=== PATIENT | female | born 1970 ===

== ENCOUNTER 2016-08-22 11:50 | Day surgery (SDC) | payer OTHER ==
[2016-08-22 12:01] VITALS: BMI 31.5
[2016-08-22 12:09] VITALS: RESP 18
[2016-08-22] MEDS ORDERED: methylPREDNISolone Depo 80 mg/ml Inj ONE (12:44)
[2016-08-22] MEDS ORDERED: Lidocaine 1% Inj (20ml) ONE (12:44)
[2016-08-22] MEDS ORDERED: Bupivacaine 0.5% Inj(30mL) ONE (12:44)
[2016-08-22] MEDS ORDERED: Propofol 10 mg/ml Inj (20 ML) ONE (12:44)
[2016-08-22] MEDS ORDERED: Midazolam 2 MG/2 ML VIAL ONE (12:45)
[2016-08-22] MEDS ORDERED: Bupivacaine 0.5% 50 ML IJ ONE (12:53)
[2016-08-22] MEDS ORDERED: Lidocaine 1% 20 MG/2 ML PF AMP EP ONE (12:53)
[2016-08-22] MEDS ORDERED: methylPREDNISolone Depo 80 mg/ml Inj IM ONE (12:53)
[2016-08-22] MEDS ORDERED: Lactated Ringer's 1,000 ML IV ONE (13:06)
[2016-08-22 13:46] VITALS: TEMP 97.6
--- NOTE | 2016-08-22 13:58 | OP ---
PROCEDURE DATE: 08/22/2016 PREOPERATIVE DIAGNOSIS: Lumbar facet arthropathy. POSTOPERATIVE DIAGNOSIS: Lumbar facet arthropathy. PROCEDURE: Right L2, L3, and L4 medial nerve block. ANESTHESIOLOGIST: Dr. Brunson. SURGEON: Dr. Zhang. ANESTHESIA TYPE: Monitored anesthesia care. COMPLICATIONS: None. SPECIMEN: None. PROCEDURE: After re-discussion of the procedure with the patient including its risks, benefits and a lternatives, outcome data, possibility of no effect or increased pain, the patient consented to the p rocedure. She denies any recent infections, bleeding tendencies, or being on anticoagulants. [place] on was then made to proceed to the OR. The patient was placed on the fluoroscopy table in a prone position with 2 pillows underneath her abd omen. The back was prepped and draped in a usual sterile fashion and sterile technique was adhered t o during the entire procedure. The L2, L3 and L4 medial branch nerves are located at the intersectio n of the superior articular process and the transverse process of the L2, L3 and L4 pedicles. The sk in overlying the 3 above target areas was then infiltrated with 1% lidocaine using a 25 gauge needle. Subsequently, a 22 gauge 3-1/2 inch spinal needle was then incrementally advanced under fluoroscopi c guidance until tip of needle made bony contact with all 3 target areas. After satisfactory positio sandra of all 3 needles, approximately 3 mL of a 0.5% Marcaine and Depo-Medrol mixture was injected int o each needle. The needle was then removed and the patient's back was cleaned and dried and Band-Aid s were applied. The patient was then transferred to recovery area in good condition without any signs of SNUFF GRINDER toxicity or any neurological deficits. She will have a followup in office in approximately 2-4 weeks. En-Anthony Zhang MD cc: [phone] TT: 08/22/2016 13:58:05 radha
[2016-08-22 14:08] VITALS: BP 150/83; PULSE 70; O2SAT 100
--- NOTE | 2016-08-22 14:59 | RAD ---
PROCEDURE: Lumbar Epidural Injection HISTORY: ' TECHNIQUE: Fluoroscopic guidance was provided for epidural injection for pain management purposes. FINDINGS: IMPRESSION: Fluoroscopic guidance provided for epidural injection. Please refer procedure.
== END 2016-08-22 14:27 | disposition home or self-care (01) ==
LOC: H.OPSURG 11:50
PROVIDERS: ATTEND Anesthesiology
DX: M54.9 Dorsalgia, unspecified (principal); J45.909 Unspecified asthma, uncomplicated; I10 Essential (primary) hypertension

== ENCOUNTER 2016-10-24 09:42 | Day surgery (SDC) | payer OTHER ==
[2016-10-24 10:37] VITALS: BMI 30.9
[2016-10-24] MEDS ORDERED: Propofol 10 mg/ml Inj (20 ML) ONE (11:35)
[2016-10-24] MEDS ORDERED: methylPREDNISolone Depo 80 mg/ml Inj ONE (11:43)
[2016-10-24] MEDS ORDERED: Bupivacaine HCl 0.5% PF (10 ml) Inj ONE (11:43)
[2016-10-24] MEDS ORDERED: Lidocaine 1% Inj (20ml) ONE (11:43)
[2016-10-24] MEDS ORDERED: Lactated Ringer's 1,000 ML IV ONE (11:50)
[2016-10-24] MEDS ORDERED: Lidocaine 1% Inj (20ml) IJ ONE (12:00)
[2016-10-24] MEDS ORDERED: Bupivacaine HCl 0.5% PF (10 ml) Inj IJ ONE (12:00)
[2016-10-24] MEDS ORDERED: methylPREDNISolone Depo 80 mg/ml Inj IM ONE (12:00)
[2016-10-24 12:23] VITALS: O2SAT 100
[2016-10-24 13:10] VITALS: TEMP 97.7
[2016-10-24 13:21] VITALS: BP 161/94; PULSE 75; RESP 18
--- NOTE | 2016-10-24 16:02 | RAD ---
PROCEDURE: Fluoroscopy up to 1 hr. HISTORY: PAIN MANAGEMENT COMPARISON: None TECHNIQUE: Standard FINDINGS: Total fluoroscopic time (continuous mode) utilized during the procedure: 21.3 seconds. Submitted images from the current procedure: 1.0 IMPRESSION: Less than 1 hr fluoroscopic time utilized during performance of the procedure.
--- NOTE | 2016-10-26 08:05 | PCM.OP ---
Operative Report - Operative Report Date of Surgery/Procedure: 10/24/16 Time of Surgery/Procedure: 13:00 Surgeon: Vicente Anesthesia/Sedation: Monitored Anesthesia Care Pre-Operative Diagnosis: Lumbar facet arthropathy Post-Operative Diagnosis: Same Indication for Surgery: Intractable Pain Operative Findings: After discussion of the procedure with the patient including its risks and deficits alternative TO THE POSSIBILITY OF INCREASED PAIN PATIENT CONSENTED TO THE PROCEDURE. SHE DENIES ANY RECENT INFECTIONS BLEEDING TENDENCIES OR BEING ON ANTICOAGULANTS. Decision was then made TO PROCEED TO THE OR. PATIENT WAS PLACED ON A FLUOROSCOPY TABLE IN A PRONE POSITION WITH 2 PILLOWS UNDERNEATH HER ABDOMEN. THE BACK WAS PREPPED AND DRAPED IN THE USUAL STERILE FASHION AND STERILE TECHNIQUE WAS ADHERED TO TRIGGER ENTIRE PROCEDURE. THE L2-L3 AND L4 VERTEBRAL LEVELS WERE FIRST IDENTIFIED IN THE ANTEROPOSTERIOR VIEW. THEN OBLIQUE ANGLE TOWARDS THE RIGHT AT APPROXIMATELY 50 WAS USED TO MAXIMIZE VISUALIZATION OF THE RIGHT L2-L3 AND L4 PEDICLES. THE MEDIAL BRANCH NERVES ARE LOCATED AT THE INTERSECTION OF THE SUPERIOR ARTICULAR PROCESS AND TRANSVERSE PROCESS OF THE UPPER PEDICLES. THE SKIN OVERLYING THE 3 ABOVE TARGET AREAS WAS INFILTRATED WITH 1% LIDOCAINE USING A 25-GAUGE NEEDLE. SUBSEQUENTLY A 22-GAUGE 3-1/2 INCH SPINAL NEEDLE WAS INCREMENTALLY ADVANCED UNDER FLUOROSCOPIC GUIDANCE UNTIL TIP OF THE NEEDLE. BONY CONTACT WITH ALL 3 TARGET AREAS. AFTER SATISFACTORY POSITIONING OF ANY LOSS APPROXIMATELY 2 ML OF A 0.5% MARCAINE AND DEPO-MEDROL MIXTURE WAS INJECTED. THE NEEDLE WAS THEN REMOVED AND THE PATIENT'S BACK WAS CLEAN AND DRY BANDAGE WERE APPLIED. PATIENT WAS TRANSFERRED TO RECOVERY AREA IN GOOD CONDITIONS WITHOUT ANY SIGNS OF SENIOR CREDIT ANALYST TOXICITY OR ANY NEUROLOGICAL DEFICIT. SHE'LL HAVE A FOLLOW-UP IN OFFICE IN APPROXIMATELY 2-4 WEEKS. END OF DICTATION Procedure/Operation Description: Right L2, L3, L4 medial branch nerve blocks Estimated Blood Loss: None. Complications: None. Discharge & Condition: Stable to home.
== END 2016-10-24 13:45 | disposition home or self-care (01) ==
LOC: H.OPSURG 09:42
PROVIDERS: ATTEND Anesthesiology
DX: M54.06 Panniculitis affecting regions of neck and back, lumbar region (principal); J45.909 Unspecified asthma, uncomplicated; I10 Essential (primary) hypertension

== ENCOUNTER 2017-01-30 10:55 | Day surgery (SDC) | payer OTHER ==
[2017-01-30 11:12] VITALS: BMI 30.1
[2017-01-30] MEDS ORDERED: Lactated Ringer's 1,000 ML IV ONE (12:25)
[2017-01-30] MEDS ORDERED: Midazolam 2 MG/2 ML VIAL ONE (12:34)
[2017-01-30] MEDS ORDERED: Lidocaine 1% Inj (20ml) ONE (12:35)
[2017-01-30] MEDS ORDERED: Bupivacaine HCl 0.5% PF (10 ml) Inj ONE (12:35)
[2017-01-30] MEDS ORDERED: methylPREDNISolone Depo 80 mg/ml Inj IM ONE (12:42)
[2017-01-30] MEDS ORDERED: Lidocaine 1% Inj (20ml) IJ ONE (12:42)
[2017-01-30] MEDS ORDERED: Bupivacaine HCl 0.5% PF (10 ml) Inj IJ ONE (12:42)
[2017-01-30] MEDS ORDERED: Lactated Ringer's 500 ML IV ONE ×2 (13:00→14:00)
[2017-01-30] MEDS ORDERED: Lactated Ringer's 1,000 ML IV SCH (13:15)
[2017-01-30 13:18] VITALS: O2SAT 100
[2017-01-30 14:21] VITALS: BP 133/68; PULSE 76; RESP 18; TEMP 97.4
--- NOTE | 2017-01-30 17:13 | RAD ---
PROCEDURE: Fluoroscopy up to 1 hr. HISTORY: PAIN MANAGEMENT COMPARISON: None TECHNIQUE: Standard protocol for this study/examination. FINDINGS: Total fluoroscopic time (continuous mode) utilized during the procedure: 31.3 seconds. Submitted images from the current procedure: 1.0 IMPRESSION: Less than 1 hr fluoroscopic time utilized during performance of the procedure.
--- NOTE | 2017-01-31 01:34 | OP ---
PROCEDURE DATE: 01/30/2017 PREOPERATIVE DIAGNOSIS: Lumbar facet syndrome. POSTOPERATIVE DIAGNOSIS: Lumbar facet syndrome. PROCEDURE: Right L1, L2, and L3 medial branch nerve radiofrequency. SURGEON: Karena Zhang MD. TYPE OF ANESTHESIA: Monitored anesthesia care. ANESTHESIA ADMINISTERED BY: Anurag Greene MD. COMPLICATIONS: None. SPECIMEN: None. DESCRIPTION OF PROCEDURE: As follows, after we had discussion of the procedure with the patient including its risks, benefits, alternative, outcome data, possibility of no effect or increased pain, patient consented to the procedure. She denies any recent infections, bleeding tendencies or being on anticoagulants. A decision was then made to proceed to the OR. Patient was placed on a fluoroscopy table in a prone position with 2 pillows underneath her abdomen. The back was prepped and draped in the usual sterile fashion and sterile technique was adhered to during the entire procedure. Patient was then grounded. The L1, L2 and L3 vertebral levels were first identified in the anterior and posterior view. Angulation towards the right at approximately 15 degrees was used to maximize the visualization of the right L1, L2 and L3 pedicles. The skin overlying the 3 above target areas was infiltrated with 1% lidocaine using a 25-gauge needle. Subsequently, a 22-gauge 3-1/2 inch spinal needle was incrementally advanced under fluoroscopic guidance until tip of the needle made bony contact with all 3 target areas. After satisfactory positioning of all 3 needles, sensory and motor testing was carried out to satisfactory results. Patient reports corresponding pain in the right lower back without any muscle twitching involving the right leg. Then, each nerve was anesthetized with 1% lidocaine. Radiofrequency was then carried out at 80 degree Celsius for approximately 1-1/2 minutes. At the end of the procedure, the nerve was anesthetized with a combination of 0.5% Marcaine and Depo-Medrol. At the end of the case, patient's back was cleaned and dried and bandages were applied. The patient was then transferred to recovery area in good conditions without any signs of ROUSTABOUT PUSHER toxicity or any neurological deficits. She will have a followup in our office in approximately 2 to 4 weeks. Karena Zhang MD
== END 2017-01-30 14:40 | disposition home or self-care (01) ==
LOC: H.OPSURG 10:55
PROVIDERS: ATTEND Anesthesiology
DX: M54.06 Panniculitis affecting regions of neck and back, lumbar region (principal); I10 Essential (primary) hypertension; J45.909 Unspecified asthma, uncomplicated
CPT/HCPCS: 64635; 64636; J1040; J2250; J3010; J7120

== ENCOUNTER 2017-08-02 07:27 | Day surgery (SDC) | payer OTHER ==
[2017-08-02] MEDS ORDERED: Iohexol 300 10 ML ONE (08:52)
[2017-08-02] MEDS ORDERED: MethylPREDNISolone Depo 40 mg/ml Inj ONE (08:52)
[2017-08-02] MEDS ORDERED: Lidocaine Hydrochloride 1% 10 ML ONE (08:53)
[2017-08-02] MEDS ORDERED: Bupivacaine HCl 0.5% PF (30 ml) Inj ONE (08:53)
[2017-08-02] MEDS ORDERED: Bupivacaine HCl 0.25% PF (30 ml) Inj ONE (08:53)
[2017-08-02] MEDS ORDERED: methylPREDNISolone Depo 80 mg/ml Inj ONE (09:10)
[2017-08-02] MEDS ORDERED: Propofol 10 mg/ml Inj (20 ML) ONE (09:11)
[2017-08-02] MEDS ORDERED: Midazolam 2 MG/2 ML VIAL ONE (09:11)
[2017-08-02] MEDS ORDERED: Lactated Ringer's 1,000 ML IV ONE (09:12)
[2017-08-02] MEDS ORDERED: Lidocaine 2% MPF (5 ml) Inj ONE (09:13)
[2017-08-02] MEDS ORDERED: methylPREDNISolone Depo 80 mg/ml Inj IM ONE (09:15)
[2017-08-02] MEDS ORDERED: Bupivacaine 0.5% Inj(30mL) IJ ONE (09:15)
[2017-08-02] MEDS ORDERED: Lidocaine 1% Inj (20ml) IJ ONE (09:15)
[2017-08-02] MEDS ORDERED: Morphine 4 MG/ML VIAL IVP PRN (09:36)
[2017-08-02 10:35] VITALS: RESP 20
[2017-08-02 10:57] VITALS: BP 141/77; PULSE 75; TEMP 98; O2SAT 100
--- NOTE | 2017-08-02 12:02 | OP ---
PROCEDURE DATE: 08/02/2017 PREOPERATIVE DIAGNOSIS: Spinal spondylosis. POSTOPERATIVE DIAGNOSIS: Spinal spondylosis. PROCEDURE: Right T10, T11, T12 and L1 medial branch nerve block. ANESTHESIOLOGIST: Dr. Brunson. SURGEON: Karena Zhang MD TYPE OF ANESTHESIA: Monitored anesthesia care. COMPLICATIONS: None. SPECIMEN: None. DESCRIPTION OF PROCEDURE: As follows. After we had discussion of the procedure with the patient including its risks, benefits, alternatives, outcome data, possibility of no effect or increased pain, the patient consented to the procedure. She denies any recent infections, bleeding tendencies, or being on anticoagulants, a decision was then made to proceed to the OR. The patient was placed on a fluoroscopy table in a prone position with 2 pillows underneath her chest. The back was prepped and draped in the usual sterile fashion and sterile technique was adhered during the entire procedure. The most tender points was identified on fluoroscopy to be T10 and T11 thoracic levels. Decision was made to change the procedure following the upper lumbar medial branch nerve to the lower thoracic medial branch nerve blocks. The thoracic medial branch nerves are located at the superior and lateral quadrant of the pedicle on the corresponding vertebrae. The three above target areas were then infiltrated with 1% lidocaine using 25-gauge needle. Subsequently, a 22-gauge 3.5 inch spinal needle was then incrementally advanced under fluoroscopic guidance until the tip of needle made bony contact with all target areas. After satisfactory positioning of all 3 needles approximately 3 mL of 0.5% Marcaine and Depo-Medrol mixture was injected. The needle was then removed. Then, the L1 pedicles on the right side was identified. The medial branch nerve at this level was located at the superior articular process and the transverse process intersection. This area was then targeted and the skin overlying this area was taken infiltrated with 1% lidocaine using 25-gauge needle. Subsequently, a 22-gauge 3.5-inch spinal needle was then incrementally advanced under fluoroscopic guidance until the tip of needle made bony contact with the target. Then, another 3 mL of 0.5% Marcaine and Depo-Medrol mixture was injected. At the end of the case, the patient's back was cleaned and dried and bandages were applied. The patient was then transferred to recovery area in good condition without any signs of EMBALMER ASSISTANT toxicity or any neurological deficits. She will be following in our office in approximately 2 to 4 weeks. Karena Zhang MD
--- NOTE | 2017-08-05 09:14 | RAD ---
PROCEDURE: Less than 1 hr fluoroscopic time utilized during performance of the procedure. HISTORY: Pain management COMPARISON: None TECHNIQUE: Total fluoroscopic time (continuous mode) utilized during the procedure 33.6 seconds. Total exam DLP: (mGy) 13.99 FINDINGS: Submitted images from the current procedure: 2.0 IMPRESSION: Less than 1 hr fluoroscopic time utilized during performance of the procedure.
== END 2017-08-02 11:02 | disposition home or self-care (01) ==
LOC: H.OPSURG 07:27
PROVIDERS: ATTEND Anesthesiology
DX: M47.899 Other spondylosis, site unspecified (principal); M54.06 Panniculitis affecting regions of neck and back, lumbar region; J45.909 Unspecified asthma, uncomplicated; I10 Essential (primary) hypertension; E66.9 Obesity, unspecified
CPT/HCPCS: 64520; J1030; J1040; J2250; J2704; J3010; J7120

== ENCOUNTER 2017-08-22 19:15 | Emergency (ER) | payer OTHER ==
[2017-08-22 19:16] VITALS: BMI 30.1
[2017-08-22 19:22] VITALS: TEMP 97.7
[2017-08-22] MEDS ORDERED: Albuterol-Ipratrop 3 mg / 0.5 (3 ml) UD INH STA ×2 (20:03)
--- NOTE | 2017-08-22 20:07 | ED PDOC ---
HPI: SOB/CHF/COPD Time Seen by Provider: 08/22/17 19:43 Chief Complaint (Nursing): Cough, Cold, Congestion History Per: Patient History/Exam Limitations: no limitations Onset/Duration Of Symptoms: Days Current Symptoms Are (Timing): Still Present Additional Complaint(s): HX of asthma, HTN presenting with shortness of breath that started yesterday, states that she received injection for asthma in Dr. Merrill's office on Saturday (does not know the name of the medication received) and since has had increasing shortness of breath that worsened yesterday, she states that it feels like her asthma. States she's having a dry cough that is so severe she vomits afterwards and cannot lie flat because the SOB gets worse. Denies fevers , chills, Chest pain, sick contacts, or recent travel. States she also takes medication for "leg swelling" but states they are not currently swollen. Past Medical History Reviewed: Historical Data, Nursing Documentation, Vital Signs Vital Signs: Last Vital Signs Temp 97.7 F 08/22/17 19:20 Pulse 98 H 08/23/17 01:08 Resp 18 08/23/17 01:08 BP 152/104 H 08/23/17 01:08 Pulse Ox 98 08/23/17 01:08 - Medical History PMH: Asthma, Cardia Arrhythmia, HTN Denies: Anemia, Chronic Kidney Disease - Family History Family History: States: Unknown Family Hx - Home Medications Home Medications: Ambulatory Orders Medication Instructions Recorded Telmisartan [Micardis] 40 mg PO .QPM 09/12/15 Cyclobenzaprine [Flexeril] 10 mg PO Q8 PRN 08/22/16 Lidocaine 5% [Lidoderm] 1 ea TD DAILY PRN 08/22/16 traMADol [Ultram] 100 mg PO Q6 PRN 08/22/16 Telmisartan/Hydrochlorothiazid 1 tab PO DAILY 01/30/17 [Micardis Hct 80-12.5 mg Tablet] traMADol [Ultram] 50 mg PO Q6 PRN 01/30/17 Albuterol Sulfate [Ventolin Hfa] 1 puff IH Q4 PRN #1 ml 08/23/17 predniSONE [predniSONE Tab] 60 mg PO DAILY #9 tab 08/23/17 - Allergies Allergies/Adverse Reactions: Allergies Allergy/AdvReac Type Severity Reaction Status Date / Time moxifloxacin Allergy ANAPHYLAXIS Verified 08/22/17 19:20 Curb-65 Severity Score - CURB-65 Severity Score Confusion: No Bun >19mg/dl (>7mmol/L): No Respiratory Rate greater than/equal to 30: No Systolic BP <90 or Diastolic BP less than/equal 60mmHg: No Age >64: No Curb-65 Score: 0 Percentage 30-day mortality: 0.6% Wells Criteria for PE - Wells Criteria for Pulmonary Embolism Clinical Signs and Symptoms of DVT: No P.E is #1 Diagnosis, or Equally Likely: No Heart Rate >100: Yes Immobilization at least 3 days;Surgery previous 4 weeks: No Previous, objectively diagnosed PE or DVT: No Hemoptysis: No Malignancy w/treatment within 6 months, or palliative: No Total Score: 1.5 Review of Systems ROS Statement: Except As Marked, All Systems Reviewed And Found Negative Respiratory: Positive for: Shortness of Breath Physical Exam - Reviewed Nursing Documentation Reviewed: Yes Vital Signs Reviewed: Yes - Physical Exam Appears: Positive for: Well, Non-toxic, No Acute Distress Head Exam: Positive for: ATRAUMATIC, NORMAL INSPECTION, NORMOCEPHALIC Skin: Positive for: Normal Color, Warm, DRY Eye Exam: Positive for: EOMI, Normal appearance, PERRL ENT: Positive for: Normal ENT Inspection Neck: Positive for: Normal, Painless ROM Cardiovascular/Chest: Positive for: Regular Rate, Rhythm Respiratory: Positive for: CNT, Normal Breath Sounds Gastrointestinal/Abdominal: Positive for: Normal Exam, Soft Back: Positive for: Normal Inspection Extremity: Positive for: Normal ROM. Negative for: Pedal Edema Neurologic/Psych: Positive for: Alert, Oriented - Laboratory Results Result Diagrams: 08/22/17 21:10 08/22/17 21:10 - ECG O2 Sat by Pulse Oximetry: 100 Pulse Ox Interpretation: Normal Medical Decision Making Medical Decision MakinPM A/P: Hx of asthma, HTN presenting with shortness of breath -patient is not wheezing on exam, but states she took her medication mometasone prior to arrival -possibly this is patient's asthma, but also possible that this may represent ACS, PE, or CHF -will initiate treatment for asthma but also workup for possible other causes of SOB -will re-eval Time: [address] Results: FINDINGS: Pulmonary arteries: No pulmonary embolism. Aorta: No aneurysm. No dissection. Lungs: No consolidation. Few nodules, up to 0.3 cm. Pleural space: No significant effusion. No pneumothorax. Heart: No cardiomegaly. No significant pericardial effusion. Bones/joints: No acute fracture. Soft tissues: Unremarkable. Lymph nodes: No pathologically enlarged lymph nodes. Adrenals: Mild hypertrophy of adrenal glands. IMPRESSION: 1. No CT evidence of pulmonary embolism. 2. Pulmonary nodules. For low-risk patients, no follow-up is necessary. For high -risk patients (smoking history or other known risk factors) an optional CT at 12 months could be performed. 3. Incidental/non-acute findings are described above. Patient is feeling significantly improved, no longer having shortness of breath. Patient is aware of pulmonary nodules, will show CT report to Dr. Davidson. Will d/c home with prednisone, return precautions given. Advised patient to take PM dose of BP medications. Scribe Attestation: Documented by Melani Pinedo, acting as a scribe for Dr. Tom Jones MD. Provider Scribe Attestation: All medical record entries made by the Scribe were at my direction and personally dictated by me. I have reviewed the chart and agree that the record accurately reflects my personal performance of the history, physical exam, medical decision making, and the department course for this patient. I have also personally directed, reviewed, and agree with the discharge instructions and disposition. Disposition - Clinical Impression Clinical Impression: Asthma exacerbation - Patient ED Disposition Is Patient to be Admitted: No - Disposition Referrals: Chucho Merrill MD [Staff Provider] - Disposition: Routine/Home Disposition Time: 00:36 Condition: IMPROVED Prescriptions: Albuterol Sulfate [Ventolin Hfa] 1 puff IH Q4 PRN #1 ml PRN Reason: Wheezing predniSONE [predniSONE Tab] 60 mg PO DAILY #9 tab Instructions: Asthma in Adults Forms: [employer] (Turkish)
[2017-08-22 21:33] LABS: BLOOD UREA NITROGEN 9 mg/dl (7-17); CALCIUM 8.5 mg/dL (8.4-10.2); GFR AFRICAN-AMERICAN > 60; GFR NON-AFRICAN AMERICAN > 60
[2017-08-22 21:34] LABS: BASO # 0.1 K/uL (0.0-0.2); EOS # 0.2 K/uL (0.0-0.7); EOS % 2.4 % (0.0-4.0); HEMOGLOBIN 11.8 g/dL (12.0-16.0); LYMPH # 3.2 K/uL (1.0-4.3); LYMPH % 50.2 % (20.0-40.0); MEAN CELL VOLUME 92.5 fl (81.0-99.0); MEAN CORPUSCULAR HGB CONC 33.5 g/dL (33.0-37.0); MEAN PLATELET VOLUME 7.3 fl (7.2-11.7); MONO # 0.4 K/uL (0.0-0.8); MONO % 5.6 % (0.0-10.0); NEUT # 2.6 K/uL (1.8-7.0); NEUT % 39.8 % (50.0-75.0); NRBC % 0.1 % (0.0-0.0); RBC 3.8 Mil/uL (3.80-5.20); RED CELL DISTRIBUTION WIDTH 13.7 % (11.5-14.5); WHITE BLOOD COUNT 6.4 K/uL (4.8-10.8)
[2017-08-22 21:43] LABS: PARTIAL THROMBOPLASTIN TIME 24.4 Seconds (25.6-37.1); PROTHROMBIN TIME 10.6 Seconds (9.8-13.1)
[2017-08-22 21:51] LABS: B-TYPE NATRIURETIC PEPTIDE 45.5 pg/ml (0-450)
[2017-08-22] MEDS ORDERED: Sodium Chloride 0.9% 100 ML ONE (22:47)
[2017-08-22] MEDS ORDERED: Iodixanol 320 MG/ML 100 ML BOTTLE IV ONE (22:47)
[2017-08-22 23:11] LABS: SQUAMOUS EPITHIAL < 1 /hpf (0-5); URINE BILIRUBIN NEGATIVE (NEGATIVE); URINE BLOOD NEGATIVE (NEGATIVE); URINE CLARITY CLEAR (Clear); URINE COLOR STRAW (YELLOW); URINE GLUCOSE (UA) NEG (Normal); URINE LEUKOCYTE ESTERASE NEG Leu/uL (Negative); URINE PROTEIN NEGATIVE (NEGATIVE); URINE UROBILINOGEN 0.2-1.0 mg/dL (0.2-1.0)
--- NOTE | 2017-08-23 00:15 | CT ---
EXAM: CT Angiography Chest With Intravenous Contrast CLINICAL HISTORY: 47 years old, female; Signs and symptoms; Shortness of breath; Patient HX: HX of asthma; Additional info: R/O pe TECHNIQUE: Axial computed tomographic angiography images of the chest with intravenous contrast using pulmonary embolism protocol. All CT scans at this facility use one or more dose reduction techniques, viz.: automated exposure control; ma/kV adjustment per patient size (including targeted exams where dose is matched to indication; i.e. head); or iterative reconstruction technique. MIP reconstructed images were created and reviewed. Coronal and sagittal reformatted images were created and reviewed. CONTRAST: 75 mL of [id number] administered intravenously. COMPARISON: CR - CHEST TWO VIEWS (PA/LAT) 2017-08-22 20:27 FINDINGS: Pulmonary arteries: No pulmonary embolism. Aorta: No aneurysm. No dissection. Lungs: No consolidation. Few nodules, up to 0.3 cm. Pleural space: No significant effusion. No pneumothorax. Heart: No cardiomegaly. No significant pericardial effusion. Bones/joints: No acute fracture. Soft tissues: Unremarkable. Lymph nodes: No pathologically enlarged lymph nodes. Adrenals: Mild hypertrophy of adrenal glands. IMPRESSION: 1. No CT evidence of pulmonary embolism. 2. Pulmonary nodules. For low-risk patients, no follow-up is necessary. For high-risk patients (smoking history or other known risk factors) an optional CT at 12 months could be performed. 3. Incidental/non-acute findings are described above.
[2017-08-23 01:08] VITALS: BP 152/104; PULSE 98; RESP 18
[2017-08-23 01:34] VITALS: O2SAT 100
--- NOTE | 2017-08-23 09:12 | RAD ---
HISTORY: Hx of asthma, HTN p/w SOB COMPARISON: No prior. TECHNIQUE: Chest PA and lateral FINDINGS: LUNGS: No active pulmonary disease. PLEURA: No significant pleural effusion identified. No pneumothorax apparent. CARDIOVASCULAR: Normal. OSSEOUS STRUCTURES: No significant abnormalities. VISUALIZED UPPER ABDOMEN: Normal. OTHER FINDINGS: None. IMPRESSION: No active disease.
--- NOTE | 2017-08-23 10:26 | CARD ---
APPROVED REPORT EKG Measurement Heart [id number] <Conclusion> Normal sinus rhythm Normal ECG
== END 2017-08-23 01:07 | disposition home or self-care (01) ==
LOC: H.ER 19:15
DX: J45.901 Unspecified asthma with (acute) exacerbation (principal); I11.0 Hypertensive heart disease with heart failure
CPT/HCPCS: 71046; 71275; 80048; 81003; 81025; 83880; 84484; 85025; 85378; 85610; 85730; 93005; 94640; 96374; 99283; J2930; Q9967